=== PATIENT | female | born 2000 | race Caucasian/White ===

== ENCOUNTER 2020-02-19 23:23 | Emergency (ER) | payer BC, SELFPAY ==
--- NOTE | ~2020-02-19 | XR_ITS ---
EXAMINATION: XR knee RT 3V DATE: 02/20/2020 00:04 INDICATION: Right knee pain TECHNIQUE: Three views of the right knee were obtained. COMPARISON: None. FINDINGS: Alignment is normal. No fracture or osteochondral lesion. Joint spaces are normal with no e rosions. No joint effusion/synovitis. Soft tissues are unremarkable. IMPRESSION: 1. No acute osseous abnormality. Reviewed, dictated and finalized at location A. X SYSTEM ADMIN
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
--- NOTE | ~2020-02-19 | XR_ITS ---
EXAMINATION: XR ankle RT min 3V INDICATION: Right ankle swelling TECHNIQUE: Four views of the right ankle are obtained. COMPARISON: None available FINDINGS: There is no fracture, dislocation, or subluxation. The mortise is intact. Soft tissue swell ing is seen in the lateral foot. IMPRESSION: 1. Soft tissue swelling without acute osseous abnormality of the ankle. Reviewed, dictated and finalized at location A. R MACHINE OPERATOR HELPER
[2020-02-19 23:37] VITALS: BP 130/82; PULSE 75; RESP 18; TEMP 37.1; O2SAT 100
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
[2020-02-20] MEDS: IBUPROFEN 400 MG TABLET 800 MG PO (00:07)
[2020-02-20 01:04] VITALS: BP 126/74; PULSE 85; RESP 18; O2SAT 100
== END 2020-02-20 01:32 | disposition home or self-care (01) ==
PROVIDERS: Emergency Provider Emergency Medicine; PCP Pediatrics
DX: S93.401A Sprain of unspecified ligament of right ankle, initial encounter (principal); S96.911A Strain of unspecified muscle and tendon at ankle and foot level, right foot, initial encounter; X50.9XXA Other and unspecified overexertion or strenuous movements or postures, initial encounter; F17.290 Nicotine dependence, other tobacco product, uncomplicated; Y93.75 Activity, martial arts
CPT/HCPCS: 73562; 73610; 73630; 99284; A9270

== ENCOUNTER 2023-12-08 17:57 | Emergency (ER) | payer OTHER, BC, SELFPAY ==
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
[2023-12-08 18:07] VITALS: BP 109/68; PULSE 96; RESP 18; TEMP 35.9; O2SAT 100
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
[2023-12-08] MEDS: LORazepam (*CRX) 0.5 MG TABLET PO (20:46)
[2023-12-08] MEDS: ONDANSETRON INJ 4 MG/2 ML VIAL IV PUSH (20:47)
[2023-12-08 21:15] VITALS: BP 120/84; PULSE 88; RESP 16; TEMP 36.9; O2SAT 100
== END 2023-12-08 21:19 | disposition home or self-care (01) ==
PROVIDERS: Emergency Provider Emergency Medicine
DX: S09.90XA Unspecified injury of head, initial encounter (principal); M54.2 Cervicalgia; V43.52XA Car driver injured in collision with other type car in traffic accident, initial encounter
CPT/HCPCS: 70450; 72125; 96374; 99284; A9270; J2405; L0140

== ENCOUNTER 2024-07-06 09:33 | Emergency (ER) | payer OTHER, SELFPAY ==
[2024-07-06 09:44] VITALS: BP 114/66; PULSE 70; RESP 16; TEMP 37.1; O2SAT 98
--- OUTSIDE RECORDS SUMMARY | 2024-07-06 09:50 | XMS_ITS | Clinical Summary ---
Author Organization [facility] Address [address] 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 This disclosure is being madepursuant to the Care Everywhere program and may not contain all information available regarding this patient. Last updated 17.[facility] [place] Allergies No known active allergies Medications * Be aware that medications may not be up to date on this document. Alwaysverify current medications with the patient. 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 Gender Identity Not on file Sexual Orientation Not on file Plan of Treatment Health Maintenance Due Date Last Done Comments HIV SCREENING 2013 HPV VACCINE (1 - 3-dose series) 2013 HEPATITIS C SCREENING 05/01/2016 DTAP/TDAP/TD VACCINES (1 - Tdap) 2017 HEPATITIS B VACCINE (1 of 3 - 19+ 3-dose series) 2017 COVID-19 VACCINE (1 - 2023-2 5 season) 2023 DEPRESSION SCREENING 03/01/2024 INFLUENZA VACCINE (Season Ended) 2024 03/12/19 16 ZOSTER VACCINE (1 of 2) 2048 HIB VACCINE Aged Out No longer eligi ble based on patient's age to complete this topic MENINGOCOCCAL (Group B) VACC INE SHARED DECISION-MAKING Aged Out No longer eligibl e based on patient's age to complete this topic MENINGOCOCCAL GROUPS A/C/Y/W VACCINE Aged Out No longer eligible b ased on patient's age to complete this topic PNEUMOCOCCAL VACCINE Aged Out No long er eligible based on patient's age to complete this topic Insurance [facility] Address: [facility] [id number] [place] [address] Care Teams Rotary Lithographic Press Operator Relationship Specialty Start Date End Date Martha Car MD [address] [place] [address] PCP - General 07/05/19
--- OUTSIDE RECORDS SUMMARY | 2024-07-06 09:50 | XMS_ITS | Data Portability ---
Author Organization [facility] [place] Address [address] [place] [address] Care Team Providers Care Detailer Furniture Name Role Phone KAREN [facility] Primary Care Provider Assessment Encounter Date Assessment Date Assessment LastModified by Organization Details LastModified Time 12/08/2021 12/08/2021 Annual gynecological exam performed. Patient will come back in a year unless there are new symptoms. [email or web address] Not available 12/08/2021 12:58:58 01/25/2023 01/25/2023 Annual gynecological exam performed. Patient will come back in a year unless there are new symptoms. Not available 01/25/2023 15:12:16 03/13/2024 03/13/2024 Annual gynecological exam performed. Patient will come back in a year unless there are new symptoms. [email or web address] Not available 03/13/2024 16:28:07 Plan of Treatment Reminders Order Date Submit Date Provider Last Modified By Organization Details Last Modified Time Details Appointments None recorded. Lab 17-hydroxyp rogesterone , QN, serum 2021 [facility] (Lab), [address], [place], [address], 15:04:39 dhea-sulfat e, serum 2021 [facility] (Lab), [address], [place], [address], 15:04:33 estradiol, serum 2021 [facility] (Lab), [address], [place], [address], 15:04:34 FSH (follicle-s timulating hormone), serum 2021 [facility] (Lab), [address], [place], [address], 15:04:36 HbA1c (hemoglobin A1c), blood 2021 [facility] (Lab), [address], [place], [address], 2 15:04:38 lh (luteinizin g hormone), serum 2021 [facility] (Lab), [address], [place], [address], 15:04:36 progesteron e, serum 2021 [facility] (Lab), [address], [place], [address], 15:04:35 prolactin, serum 2021 [facility] (Lab), [address] [place], [address], 15:04:35 shbg (sex hormone-bin ding globulin), serum 2021 [facility] (Lab), [address] [place], [address], 2 15:04:37 TSH, serum or plasma 2021 [facility] (Lab), [address] [place], [address], 15:04:37 testosteron e free/testos terone total, ratio, serum 2021 022 [facility] (Lab), [address] [facility], [place], [address], 15:04:39 CBC w/ auto diff 2021 022 [facility] (Lab), [address] [facility], [place], [address], 15:04:33 Referral None recorded. Procedures None recorded. Surgeries None recorded. Imaging None recorded. Medication Orders None recorded. Patient TargetsNo targets recorded. Patient InstructionsNo instructions recorded. Reason for Referral None Reported. Results Created Date Observation Date Name Description Value Unit Range Abnormal Flag Note LastModifiedBy Organization Detail LastModifiedTime 10/07/1910/06/2021 CT/GC AND TRICH OMONA S VAGIN KHUSHBOO (RRNA ), URINE chlamydia trachomatis, PCR Negati ve negati ve Not Available [facility] [address] [place] [address], [address], 10/07/2021 14:49:25 10/07/19 22 10/06/2021 CT/GC AND TRICH OMONA S VAGIN KHUSHBOO (RRNA ), URINE neisseria gonorrhoeae, PCR Negati ve negati ve Not Available [facility] [address] [place] [address], [address], 10/07/2021 14:49:25 10/07/19 22 10/06/2021 CT/GC AND TRICH OMONA S VAGIN KHUSHBOO (RRNA ), URINE trichomonas vaginalis ribosomal RNA (rrna) Negati ve negati ve Not Available [facility] [address] [place] [address], [address], 10/07/2021 14:49:25 10/07/19 22 10/06/2021 CBC W/DIF F WBC 5.7 10'3/ uL 3.6-10 .2 Not Available [facility] Disease [address] [place] [address] [place], [address], 10/13/2021 15:04:33 10/07/19 22 10/06/2021 CBC W/DIF F RBC 4.70 10'6/ uL (based on docume nted legal sex) 4.10-5 .30 Not Available [facility] Infectious Disease [facility] [place], [address], 10/13/2021 15:04:33 10/07/19 22 10/06/2021 CBC W/DIF F HGB 14.2 g/dL (based on docume nted legal sex) 11.9-1 5.8 Not Available [facility] Infectious Disease [facility] [place], [address], 10/13/2021 15:04:33 10/07/19 22 10/06/2021 CBC W/DIF F HCT 43.4 % (based on docume nted legal sex) 37.4-4 8.3 Not Available [facility] Infectious Disease [facility] [place], [address], 10/13/2021 15:04:33 10/07/19 22 10/06/2021 CBC W/DIF F MCV 92.0 fL 82.0-9 9.0 Not Available [facility] [place], [address], 10/13/2021 15:04:33 10/07/19 22 10/06/2021 CBC W/DIF F MCH 30.0 pg 27.0-3 3.0 Not Available [facility] [place], [address], 10/13/2021 15:04:33 10/07/19 22 10/06/2021 CBC W/DIF F MCHC 33.0 g/dL 32.0-3 6.0 Not Available [facility] [place], [address], 10/13/2021 15:04:33 10/07/19 22 10/06/2021 CBC W/DIF F RDW 13.0 % 11.0-1 5.0 Not Available [facility] [place], [address], 10/13/2021 15:04:33 10/07/19 22 10/06/2021 CBC W/DIF F plt 291 10'3/ uL 150-45 0 Not Available [facility] [place], [address], 10/13/2021 15:04:33 10/07/19 22 10/06/2021 CBC W/DIF F MPV 10.5 fL 9.8-12 .7 Not Available [facility] [place], [address], 10/13/2021 15:04:33 10/07/19 22 10/06/2021 CBC W/DIF F NRBC's 0.0 % 0 Not Available [facility] Infectious Disease [facility] [place], [address], 10/13/2021 15:04:33 10/07/19 22 10/06/2021 CBC W/DIF F absolute NRBCs 0.0 10'3/ uL 0 Not Available [facility] [place], [address], 10/13/2021 15:04:33 10/07/19 22 10/06/2021 CBC W/DIF F neutrophils 55.0 % 37.0-7 2.0 Not Available [facility] Infect[facility] [place], [address], 10/13/2021 15:04:33 10/07/19 22 10/06/2021 CBC W/DIF F lymphocytes 32.0 % 16.0-4 8.0 Not Available [facility] [place], [address], 10/13/2021 15:04:33 10/07/19 22 10/06/2021 CBC W/DIF F monocytes 11.0 % 4.0-14 .0 Not Available [facility] Infect[facility] Disease [address] [place], [place] [address], [place], [address], 10/13/2021 15:04:33 10/07/19 22 10/06/2021 CBC W/DIF F eosinophils 1.0 % 0.0-9. 0 Not Available [facility] [address] [place] [address], [address], 10/13/2021 15:04:33 10/07/19 22 10/06/2021 CBC W/DIF F basophils 1.0 % 0.0-2. 0 Not Available [facility] Disease [address] [place], [place] [address], [place], [address], 10/13/2021 15:04:33 10/07/19 22 10/06/2021 CBC W/DIF F immature granulocytes 0.0 % no define d refere nce range Not Available [facility] Disease [address] [place], [place] [address], [place], [address], 10/13/2021 15:04:33 10/07/19 22 10/06/2021 CBC W/DIF F absolute neutrophils 3.2 10'3/ uL 1.1-6. 0 Not Available [facility] Disease [address] [place], [place] [address], [place], [address], 10/13/2021 15:04:33 10/07/19 22 10/06/2021 CBC W/DIF F absolute lymphocytes 1.8 10'3/ uL 0.7-3. 4 Not Available [facility] Disease [address] [place], [place] [address], [place], [address], 10/13/2021 15:04:33 10/07/19 22 10/06/2021 CBC W/DIF F absolute monocytes 0.6 10'3/ uL 0.3-1. 0 Not Available [facility] Disease [address] [place] [address], [address], 10/13/2021 15:04:33 10/07/19 22 10/06/2021 CBC W/DIF F absolute eosinophils 0.1 10'3/ uL 0.0-0. 6 Not Available [facility] [address] [place] [address], [address], 10/13/2021 15:04:33 10/07/19 22 10/06/2021 CBC W/DIF F absolute basophils 0.0 10'3/ uL 0.0-0. 1 Not Available [facility] [address] [place] [address], [address], 10/13/2021 15:04:33 10/07/19 22 10/06/2021 CBC W/DIF F absolute immature granulocytes 0.0 10'3/ uL 0.00-0 .10 022 3:59 AM: P indic ates parti al resul ts on a panel have been relea sed. Addit ional resul ts will follo w. 022 3:59 AM: This resul t has been final verif ied. No addit ional or santoyo ed resul ts are expec tristan. Not Available [facility] Disease [address] [place] [address], [address], 10/13/2021 15:04:33 10/07/19 22 10/06/2021 DHEA SULFA TE DHEA-sulfate 295 ug/dL Femal e Range s Age(y ) Range (ug/d L) 10-15 34-28 0 15-20 65-36 8 20-25 148-4 07 25-35 99-34 0 35-45 61-33 7 45-55 35-25 6 55-65 19-20 5 65-75 9-246 > 75 12-15 4 Not Available [address], [address], 10/13/2021 15:04:33 10/07/19 22 10/06/2021 ESTRA DIOL estradiol 23.1 pg/mL This assay was perfo rmed using [employer] ratio n reage nts and test kits. Value s obtai mary with other assay metho ds or kits canno t be used inter [facility] . Femal e Estra diol Range s: Folli cular phase 12.4- 233 pg/mL Ovula tion phase 41.0- 398 pg/mL Lutea l phase 22.3- 341 pg/mL Postm enopa usal< 5-138 pg/mL Healt hy Pregn ant Women 1st Trime ster1 54-32 43 pg/mL 2nd Trime ster1 561-2 1280 pg/mL 3rd Trime ster8 525-> 01389 pg/mL Not Available [address], [address], 10/13/2021 15:04:34 10/07/19 22 10/06/2021 PROGE STERO NE progesterone 0.32 NG/mL This assay was perfo rmed using [employer] ratio n reage nts and test kits. Value s obtai mary with other assay metho ds or kits canno t be used inter santoyo eably . Femal e Proge stero ne Range s: Folli cular phase 0.06- 0.89 ng/mL Ovula tion phase 0.12- 12.00 ng/mL Lutea l phase 1.83- 23.90 ng/mL Postm enopa usal< 0.05- 0.13 ng/mL Healt hy Pregn ant Women 1st Trime ster1 1.0-4 4.30 2nd Trime ster2 5.40- 83.30 3rd Trime ster5 8.70- 214.0 0 Not Available [facility] Disease [address] [place], [address], 10/13/2021 15:04:35 10/07/19 22 10/06/2021 PROLA CTIN prolactin, total 27.10 NG/mL 4.79-2 3.30 high This assay was perfo rmed using [employer] ratio n reage nts and test kits. Value s obtai mary with other assay metho ds or kits canno t be used inter [facility] . Not Available [facility] Disease [address] [place], [address], 10/13/2021 15:04:35 10/07/19 22 10/06/2021 LH (LUTE NIZIN G HORMO NE) LH 7.3 mIU/m L This assay was perfo rmed using [employer] ratio n reage nts and test kits. Value s obtai mary with other assay metho ds or kits canno t be used inter [facility] . Femal es Mid-F ollic ular: 2.4-1 2.6 mIU/m L Mid-C ycle: 14.0- 95.6 mIU/m L Mid-L uteal : 1.0-1 1.4 mIU/m L Postm enopa use: 7.7-5 8.5 mIU/m L Not Available [facility] Disease [address] [place], [address], 10/13/2021 15:04:36 10/07/19 22 10/06/2021 FSH FSH 6.7 mIU/m L This assay was perfo rmed using [employer] ratio n reage nts and test kits. Value s obtai mary with other assay metho ds or kits canno t be used inter [facility] . Femal es Folli cular : 3.5-1 2.5 mIU/m L Ovula tion: 4.7-2 1.5 mIU/m L Lutea l: 1.7-7 .7 mIU/m L Postm enopa use: 25.8- 134.8 mIU/m L Not Available [facility] Infect[facility] Disease [address] [place], [address], 10/13/2021 15:04:36 10/07/19 22 10/06/2021 TSH, REFLE X FREE T4 TSH 1.72 uIU/m L 0.30-5 .33 Not Available [facility] Disease [address] [place], [address], 10/13/2021 15:04:37 10/07/19 22 10/06/2021 HUMAN SEX HORMO NE CADE NG GLOBU ITZ sex hormone binding globulin 43.6 nmole s/L 18.2-1 35.5 Not Available [facility] Disease [address] [place], [address], 10/13/2021 15:04:37 10/07/19 22 10/06/2021 HEMOG LOBIN A1C hemoglobin A1C 5.0 % 0-5.6 The Ameri can Diabe arabella [employer] iatio n recom mends that a prima ry goal of thera py rakesh d be a HBA1C of < 7% and that physi cians shoul d reeva luate the treat ment regim en in patie nts with HBA1C value s consi stent ly > 8%. <5.7% Ellen l 5.7 - 6.4% Incre ased risk for diabe arabella >=6.5 % Diagn ostic of diabe arabella <7.0% Goal of thera py >8.0% Actio n sugge sted Not Available [facility] Disease [address] [place], [address], 10/13/2021 15:04:38 10/07/19 22 10/06/2021 TESTO STERO NE, FREE( DIALY SIS) AND TOTAL (LC/M S/MS) testosterone , total 41 NG/dL 2-45 For addit ional infor nalinijazmine gustafson e refer to http: //[facility] adrienne cuadraque stdia gnost ics.c om/fa q/Tot Allison Oneal [facility] (This link is being provi ded for infor matio nal/ educa ashanti l purpo ses only. ) This test was devel oped and its sulema tical perfo rmanc e apolonia cteri stics have been deter mined by [employer]. It has not been clear ed or appro oneil by the FDA. This assay has been valid ated pursu ant to the CLIA regul ation s and is used for clini danielle purpo ses. Not Available [facility] Disease [address] [place], [address], 10/13/2021 15:04:39 10/07/19 22 10/06/2021 TESTO STERO NE, FREE( DIALY SIS) AND TOTAL (LC/M S/MS) testosterone , free 4.4 pg/mL 0.1-6. 4 This test was devel oped and its sulema tical perfo rmanc e apolonia cteri stics have been deter mined by [employer]. It has not been clear ed or appro oneil by the FDA. This assay has been valid ated pursu ant to the CLIA regul ation s and is used for clini danielle purpo ses. Perfo rming Organ izati on Lisa galvan n: Site ID: [id number] Name: [employer] o[employer] s-Kyle [facility] Addre ss: [id number] [place] [facility] [place] [address] Direc tor: Mary turner M.D. Not Available [facility] Disease [address] [place], [address], 10/13/2021 15:04:39 10/07/19 22 10/06/2021 17-OH PROGE STERO NE 17-hydroxypr ogesterone, lc/MS/MS 40 NG/dL Adult Femal e Refer ence Range s for 17-Hy droxy proge stero ne: Pre-M enopa usal Mid Folli cular : 23-10 2 ng/dL Pre-M enopa usal Surge : 67-34 9 ng/dL Pre-M enopa usal Mid Lutea l: 139-4 31 ng/dL Postm enopa usal Phase : < or = 45 ng/dL Pregn alessandro: First Trime ster: 78-45 7 ng/dL Secon d Trime ster: 90-35 7 ng/dL Third Trime ster: 144-5 78 ng/dL This test was devel oped and its sulema tical perfo rmanc e apolonia cteri stics have been deter mined by [facility] . It has not been clear ed or appro oneil by FDA. This assay has been valid ated pursu ant to the CLIA regul ation s and is used for clini danielle purpo ses. Perfo rming Organ izati on Infor matio n: Site ID: [id number] Name: [employer] ostsherrie s/K[facility] , Addre ss: [id number] [place] [address] Direc tor: Isis hobbs MD,Ph D,NHUNG Not Available [facility] [address] [place], [address], 10/13/2021 15:04:39 11/06/19 22 11/05/2021 PROLA CTIN prolactin, total 24.90 NG/mL 4.79-2 3.30 high This assay was perfo rmed using [employer] ratio n reage nts and test kits. Value s obtai mary with other assay metho ds or kits canno t be used inter s[facility]ably . Not Available [facility] [address] [place], [address], 11/06/2021 03:48:09 12/09/19 22 12/08/2021 PROLA CTIN prolactin, total 21.10 NG/mL 4.79-2 3.30 This assay was perfo rmed using [employer] ratio n reage nts and test kits. Value s obtai mary with other assay metho ds or kits canno t be used inter santoyo eably . Not Available [facility] [address], [place], [address], 12/09/2021 05:14:17 12/09/19 22 12/08/2021 IMAGE GUIDE D PAP, REFLE X HPV IF ASCUS ONLY image guided Pap, reflex HPV ASCUS only SEE RESULT S BELOW abnormal CASE REPOR T: Cytol ogy Gynec ologi danielle Repor t Case: [id number] Autho sonia hooks Provi jaya: Aide Sands, AIR TUCKER Colle cted: 12/08 1332 Order ing Locat ion: [place] Patho log[facility] Recei oneil: 12/09 0655 First Scree n: Strut z, Willi am, CT Patho logis t: Nav [address], MD Speci men: Scree roddy Pap - Image d, Cervi x STATE MENT OF ADEQU ACY: Satis facto ry for evalu ation Trans forma tion zone compo nent prese nt FINAL DIAGN OSIS: Epith elial Cell Abnor malit y, Squam ous Cell: Atypi daneille Squam ous Cells of Undet ermin ed Signi chema ce (ASC- US). Elect brock gao d by Nav Quigley rd, MD on 12/15 at 10:30 AM ----- ----- ----- ----- ----- ----- ----- ----- ----- ----- ----- ----- ----- ----- ----- ----- ----- ---- HPV RESUL TS: HPV mRNA E6/E7 : Posit ramiro - HPV mRNA Detec tristan HPV GENOT YPE 16 ([facility]) : Not Detec tristan HPV GENOT YPE 18/45 ([facility]) : Not Detec tristan NOTE: This high risk HPV mRNA assay detec ts fourt een high- risk HPV types (16, 18, 31, 33, 35, 39, 45, 51, 52, 56, 58, 59, 66, 68) witho ut diffe renti ation . This assay can diffe renti ate HPV 16 from HPV 18/45 , but does not diffe renti ate betwe en HPV 18 and HPV 45. A negat ramiro HPV 16, 18/45 genot ype assay resul t does not exclu de the possi bilit y of cytol ogic abnor malit ies or of futur e or under lying SARAH 1, SARAH 3 or cance r. COMME NT: Note: This speci men was revie wed by a Cytot echno logis t and/o r Patho logis t (as indic ated in this repor t) after evalu ation using the Thinp rep Imagi ng Syste m. CLINI DANIELLE INFOR MATIO N: Menst rual Statu s: LMP (if appli cable ): Clini danielle Histo ry/Pr eviou s Pap: Type of Neopl rylan (if appli cable ): Signi fican t Clini danielle Findi ngs: Other Histo ry: Hormo olaf (if appli cable ): SUGGE STED FOLLO W-UP: Follo w up as warra nted, based on curre nt guide lines and indiv idual patie nt consi derat ions. Not Available [facility] [address] [place], [address], 12/17/2021 17:03:55 12/09/1912/08/2021 TRICH OMONA S VAGIN KHUSHBOO (RRNA ) trichomonas vaginalis ribosomal RNA (rrna) Negati ve negati ve Not Available [facility] [address], [place], [address], 12/17/2021 17:03:56 12/09/1912/08/2021 CT/GC ([facility]) , THINP REP VIAL chlamydia trachomatis, PCR Negati ve negati ve Not Available [facility] [address] [place], [address], 12/17/2021 17:03:56 12/09/19 22 12/08/2021 CT/GC ([facility]) , THINP REP VIAL neisseria gonorrhoeae, PCR Negati ve negati ve Not Available [facility] [address] [place], [address], 12/17/2021 17:03:56 01/26/20 23 01/25/2023 IMAGE GUIDE D PAP, REFLE X HPV IF ASCUS ONLY image guided Pap, reflex HPV ASCUS only SEE RESULT S BELOW CASE REPOR T: Cytol ogy Gynec ologi danielle Repor t Case: [id number] Autho sonia Provi jaya: Aide Sands, MYRIAM Colle cted: 01/25 1700 Order ing Locat ion: [place] Patho logy Recei oneil: 01/26 0846 First Scree n: Rob Talley, CT Rescr een: Flakita Bullock CT Speci men: Scree roddy Pap - Image d, Cervi x STATE MENT OF ADEQU ACY: Satis facto ry for evalu ation Trans forma tion zone compo nent prese nt FINAL DIAGN OSIS: Negat ramiro for Intra epith elial Carmen n or Jaquelin aguilar (NIL) . Anabel gao d by Flakita Bullock , VICTORIANO on 01/28 at 2:34 PM ----- ----- ----- ----- ----- ----- ----- ----- ----- ----- ----- ----- ----- ----- ----- ----- ----- ---- COMME NT: This speci men was revie wed by a Cytot echno logis t and/o r Patho logis t (as indic ated in this repor t) after evalu ation using the Thinp rep Imagi ng Syste m. CLINI DANIELLE INFOR MATIO N: Menst rual Statu s: LMP (if appli cable ): Clini danielle Histo ry/Pr eviou s Pap: Type of Neopl rylan (if appli cable ): Signi fican t Clini danielle Findi ngs: Other Histo ry: Hormo olaf (if appli cable ): PAP EDUCA ASHANTI L NOTE: The Pap Test is a scree roddy test with an inher ent false negat ramiro rate. Liqui d-bas ed sampl ing may decre ase, but will not elimi liborio, false negat ramiro resul ts. A negat ramiro resul t does not precl ude the prese nce and/o r devel opmen t of disea se, since the prese nce of abnor mal cells in the sampl e depen ds on the locat ion of the lesio n and sampl ing techn ique. Newton nued regul ar scree roddy is the best metho d of cance r preve ntion . If repor tristan cytol ogic findi ng do not corre late with physi danielle and/o r histo rical findi ngs, furth er inves tigat ion is recom nyasia d, as clini nano pacheco nted. Not Available [facility] (Lab) [address], [place], [address], 01/28/2023 15:38:51 03/13/19 25 03/13/2024 IMAGE GUIDE D PAP, REFLE X HPV IF ASCUS ONLY image guided Pap, reflex HPV ASCUS only SEE RESULT S BELOW CASE REPOR T: Cytol ogy Gynec ologi danielle Repor t Case: [id number] Autho sonia g Provi jaya: Aide Sands, MYRIAM Hinson cted: 03/13 1621 Order ing Locat ion: [place] Patho logy Recei oneil: 03/14 1316 First Scree n: Andrew r, Flakita , CT Rescr een: Marisabel Lyons Speci men: Scree roddy Pap - Image d, Cervi x STATE MENT OF ADEQU ACY: Satis facto ry for evalu ation Trans forma tion zone compo nent absen t The absen ce of an endoc ervic al compo nent was confi rmed by an addit ional scree ner. ----- ----- ----- ----- ----- ----- ----- ----- ----- ----- ----- ----- ----- ----- ----- ----- ----- ---- FINAL DIAGN OSIS: Negat ramiro for Intra epith margie walters or Jaquelin aguilar (NIL) . Elect brock ascencio by Marisabel franklin on 2024 at 1944 [employer] ----- ----- ----- ----- ----- ----- ----- ----- ----- ----- ----- ----- ----- ----- ----- ----- ----- ---- COMME NT: This speci men was revie wed by a Cytot echno logis t and/o r Patho logis t (as indic ated in this repor t) after evalu ation using the Thinp rep Imagi ng Syste m. CLINI DANIELLE INFOR MATIO N: Menst rual Statu s: LMP (if appli cable ): Clini danielle Histo ry/Pr eviou s Pap: Type of Neopl rylan (if appli cable ): Signi fican t Clini danielle Findi ngs: Other Histo ry: Hormo olaf (if appli cable ): PAP EDUCA ASHANTI L NOTE: The Pap Test is a scree roddy test with an inher ent false negat ramiro rate. Liqui d-bas ed sampl ing may decre ase, but will not elimi liborio, false negat ramiro resul ts. A negat ramiro resul t does not precl ude the prese nce and/o r devel opmen t of disea se, since the prese nce of abnor mal cells in the sampl e depen ds on the locat ion of the lesio n and sampl ing techn ique. Newton nued regul ar scree roddy is the best metho d of cance r preve ntion . If repor tristan cytol ogic findi ng do not corre late with physi danielle and/o r histo rical findi ngs, furth er inves tigat ion is recom nyasia d, as clini nano warrmarni nted. Not Available [facility] (Lab) [address], [place], [address], 03/20/2024 20:47:41 Result Notes None recorded. Problems Name Problem SNOMED Code Status Onset Date Resolution Date Notes Provider Name and Address Organization Details Recorded Time Mixed anxiety and depressive disorder 460411221 [facility] 15:14:33 History of epilepsy 123030279 Active 2022 [facility] 15:15:07 Problem Notes None recorded. Procedures Surgical History Date Name Laterality Status Provider Name and Address Organization Details Recorded Time 3 Date of Last Mammogram completed [facility] 03/13/2024 16:29:26 0 Date of Last Pap Smear completed [facility] 03/13/2024 16:29:26 Imaging Results None recorded. Procedure Notes None recorded. Medical Equipment None Reported. Allergies Allergen ID Allergen Name Allergen Category Reaction Reaction Severity Criticality Documentation Date Start Date Code Code System Note Provider Name and Address Organization Details Recorded Time 98300 Penicilli n Not available angioedem a Not available Not available 10/06/2021 04158 RxNorm Addie [facility]te [facility] 2 11:43:35 16543 cat dander environme nt Not available Not available Not available 01/25/2023 99853 PAIGE tinoco, [facility] 3 15:13:03 84296 Canis lupus familiari s extract environme nt Not available Not available Not available 01/25/2023 52773 4 [facility]io [facility] 3 15:13:12 15559 walnut allergeni c extract food Not available Not available Not available 01/25/2023 80013 0 RxFlorencio tinoco, [facility] 3 15:13:21 63774 tree and shrub pollen environme nt,medica tion Not available Not available Not available 01/25/2023 47926 [facility] 3 15:13:31 17017 grass pollen environme nt,medica tion Not available Not available Not available 01/25/2023 11423 [facility] 3 15:13:43 11616 weed pollen environme nt,medica tion Not available Not available Not available 01/25/2023 38566 [facility] 3 15:13:52 Medications Name Sig Start Date Stop Date Status Note LastModified by Organization Details LastModified Time cyclobenzap rine 10 mg tablet TAKE 1 TABLET BY MOUTH TWICE DAILY NEEDED FOR MUSCLE SPASM active Not Available Not Available No t Available buspirone 5 mg tablet 01/25 completed Not Available Not Available Not Available ondansetron HCl 4 mg tablet TAKE 1 TABLET BY MOUTH EVERY 8 HOURS NEEDED 01/25 completed Not Available Not Available Not Available sertraline 100 mg tablet TAKE 1 TABLET BY MOUTH DAILY active Not Available Not Available No t Available hydroxyzine HCl 50 mg tablet TAKE 1 TABLET BY MOUTH THREE TIMES DAILY NEEDED active Not Available Not Available No t Available cephalexin 500 mg capsule 03/13 completed Not Available Not Available Not Available Prozac 20 mg capsule Take 1 capsule every day by oral route. 01/25 completed Not Available Not Available Not Available sertraline 25 mg tablet TAKE 1 TABLET BY MOUTH EVERY MORNING 03/13 completed Not Available Not Available Not Available hydroxyzine HCl 25 mg tablet TAKE 1 TABLET BY MOUTH THREE TIMES DAILY NEEDED 03/13 completed Not Available Not Available Not Available Prozac 10 mg capsule 01/25 completed Not Available Not Available Not Available ondansetron 4 mg disintegrat ing tablet DISSOLVE 1 TABLET ON THE TONGUE EVERY 8 HOURS NEEDED FOR NAUSEA OR VOMITING 03/13 completed Not Available Not Available Not Available fluticasone propionate 50 mcg/actuati on nasal spray,suspe nsion 01/25 completed Not Available Not Available Not Available sertraline 50 mg tablet TAKE 1 TABLET BY MOUTH DAILY 03/13 completed Not Available Not Available Not Available doxycycline hyclate 100 mg tablet TAKE ONE TABLET BY MOUTH TWICE DAILY FOR 10 DAYS 03/13 completed Not Available Not Available Not Available atomoxetine 25 mg capsule TAKE 1 CAPSULE BY MOUTH DAILY active Not Available Not Available No t Available lamotrigine ER 50 mg tablet,exte nded release 24 hr active Not Available Not Available Not Available Vitals Date Recorded Body height Body mass index (BMI) Body weight Systolic blood pressure Diastolic blood pressure Provider Name and Address Organization Details Last Updated DateTime 10/06/2021 170.18 cm 25.3 kg/m2 22672.53 g 120 mm[Hg] 77 mm[Hg] [facility] 2 11:43:30 Date Recorded Body height Body mass index (BMI) Body weight Systolic blood pressure Diastolic blood pressure Provider Name and Address Organization Details Last Updated DateTime 12/08/2021 170.18 cm 25.3 kg/m2 24160.25 g 117 mm[Hg] 76 mm[Hg] [facility] 2 12:59:22 Date Recorded Body height Body mass index (BMI) Body weight Systolic blood pressure Diastolic blood pressure Provider Name and Address Organization Details Last Updated DateTime 01/25/2023 170.18 cm 24.3 kg/m2 26825.82 g 124 mm[Hg] 80 mm[Hg] Hetal Alicea [facility] 3 15:12:44 Date Recorded Body height Body mass index (BMI) Body weight Systolic blood pressure Diastolic blood pressure Provider Name and Address Organization Details Last Updated DateTime 03/13/2024 170.18 cm 24 kg/m2 94787.63 g 121 mm[Hg] 77 mm[Hg] DUONG Marie [facility] 5 16:28:57 Social History Question Answer Notes LastModified by Organizat ion Details LastModified Time Tobacco Smoking Status Current Every Day Smoker Hetal Alicea [facility] 01/25/2023 15:15:50 Do You Have An Advance Directive? No Information not available 10/06/2021 What Is Your Level Of Alcohol Consumption? Occasional Information not available 10/06/2021 How Many Years Have You Consumed Alcohol? 5 [email or web address] Information not available 03/13/2024 Are You Blind Or Do You Have Difficulty Seeing? No Information not available 10/06/2021 What Is Your Level Of Caffeine Consumption? Occasional Information not available 10/06/2021 How Much Tobacco Do You Chew? None Information not available 10/06/2021 In The 14 Days Before Symptom Onset, Have You Had Close Contact With A Laboratory-confir med COVID-19 While That Case Was Ill? No Information not available 10/06/2021 In The 14 Days Before Symptom Onset, Have You Had Close Contact With A Person Who Is Under Investigation For COVID-19 While That Person Was Ill? No Information not available 10/06/2021 Have You Been To An Area Known To Be High Risk For COVID-19? No Information not available 10/06/2021 Are You Deaf Or Do You Have Serious Difficulty Hearing? No Information not available 10/06/2021 What Type Of Diet Are You Following? REGULAR Information not available 10/06/2021 What Is The Highest Grade Or Level Of School You Have Completed Or The Highest Degree You Have Received? 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 Yes Information not available 10/06/2021 Do You Use Your Seat Belt Or Car Seat Routinely? Yes Information not available 10/06/2021 Do You Have Smoke And Carbon Monoxide Detectors In Your Home? Yes Information not available 10/06/2021 At What Age Did You Start Smoking Tobacco? 16 Information not available 10/06/2021 How Much Tobacco Do You Smoke? 2 PPW [email or web address] Information not available 03/13/2024 Do You Feel Stressed (tense, Restless, Nervous, Or Anxious, Or Unable To Sleep At Night)? [id number] [email or web address] Information not available 03/13/2024 Do You Use Any Illicit Or Recreational Drugs? Yes Information not available 10/06/2021 Do You Use Sunscreen Routinely? Yes Information not available 10/06/2021 How Many Years Have You Smoked Tobacco? 3 [email or web address] Information not available 03/13/2024 Have You Used IV Drugs? No Information not available 10/06/2021 Sex: Unknown Functional Status Question Answer Note LastModified by Organizat ion Details LastModified Time Do you have difficulty walking or climbing stairs? No [email or web address] Information not available 12/08/2021 Are you able to walk? [email or web address] Information not available 10/06/2021 Are you able to care for yourself? Yes [email or web address] Information not available 12/08/2021 Do you have difficulty dressing or bathing? No [email or web address] Information not available 12/08/2021 What is your exercise level? Occasional Information not available 10/06/2021 Mental Status None recorded. Family History Relationship Description Onset Age of this Age Resolved Age Notes LastModified by Organization Details LastModified Time Unspecified Relation Family history unknown [email or web address] Not available 09/2021 11:43:38 Medical History Condition Response Allergies (Food, seasonal, environmental ) Y Other Y Drug/Latex Allergies/Reactions Y Blood Transfusion N Breast Cancer N Dermatologic Disorders N Lung Disease N Defects or Inherited Disease N Breast Problem N Gestational Diabetes N Hematologic disorders N Anesthesia Complications N History of STI Y Deep Vein Thrombosis N Polycystic ovary syndrome N Anxiety Disorder Y Autoimmune disease N Arthritis N Polyps N Infertility N Acid Reflux (GERD) N History of abnormal pap Y Cancer N Varicosities N Stroke N Neurologic/Epilepsy Y Endometriosis N High Cholesterol N Fibromyalgia N Headaches N Kidney Disease N Heart Problems N Thyroid Problems N Kidney or Bladder Problems N GI Problems N Eating Disorder N Anemia N Art (IVF or FET) N Psychiatric Illness N Ovarian Cancer N Diabetes N Pulmonary (TB, Asthma) N Hepatitis/Liver Disease N No Past Medical History N Eczema N Urinary Tract Infection N Abuse/Domestic Violence N Asthma N Trauma/Violence N Depression/ depression Y Heart Disease N Pre-Eclampsia N Hypertension N Osteoporosis N Thrombophilias N Gynecological History Statement/Question Response Abnormal Pap Y Flow Moderate Date of Last Mammogram 12/24/2022 Date of LMP 03/02/2024 N Was last menstrual period normal Y STIs/STDs N HPV Vaccine Y Duration of Flow (days) 7 Current Control Method None Are cycles usually normal Y Frequency of Cycle (Q days) 28 Sexually Active? N Menses Monthly N Age of first menstrual cycle 11 Date of Last Pap Smear 03/01/2019 Sexual Problems? N LMP Approximate N Obstetrics History GPAL:G 0 P 0 0 0 0 Type Value Living 0 Total 0 Past Encounters Encounter ID Performer Location Encounter Start Date Encounter Closed Date Diagnosis/Indication Diagnosis SNOMED-CT Code Diagnosis ICD10 Code Diagnosis Note [id number] MARCELINO [facility]ia [place] [address] [address] 10/06/2021 11:28:18 10/06/2021 12:06:22 Irregular periods 97318488 N92.6 We discussed since she only skipped one month and recently had a normal menses, she should continue to track periods. To call the office if she is frequently skipping months. We discussed need to have a period every 2-3 months for endometria l protection .She would like lab work done, labs orderedUri ne STI testing sentLast WWE around 2019 per patient, encouraged her to schedule a WWENo hx of abnormal paps per patientTo keep a strict menstrual diaryNot interested in BC at the moment - prefers female partners Time spent in visit is a total of 30 mins with at least 50% of visit consisting of counseling and review of plan of care. [id number] MARCELINO Alicia [place] [address] [address] 12/08/2021 12:35:45 12/08/2021 14:08:43 Gynecologic examination [id number] Z01.419 Z11.3 Z11.8 Take Calcium with Vitamin D 1200mg daily if not receiving in daily diet. It is strongly advised to have an annual flu shot and up can obtain at most pharmacies . If you have not had a TDap shot in the last 10 years you should obtain one as well. Discussed with patient & provided with informatio n regarding Gardisil vaccine to prevent the 4 strains for HPV that cause cervical cancer if under age 26. Encourage safe sexual practices, to use condoms and limit partners if not already in a monogamous relationsh ip. Do monthly self breast exams. Have mammogram yearly or every other year depending on family history. BRCA testing is now available for patients with strong genetic history of female cancer. If interested contact the office. Engage in daily exercise of low impact aerobic exercise 45-60 minutes 4-5 times weekly. Avoid tobacco and illicit drugs as well as using moderation with alcohol intake less than 1-2 8 oz beverages daily. This lifestyle behavior pattern will lead to less health conditions and longer life span. If BMI greater than 25 weight watchers or dietary consult advised. Patient received above instructio ns, and questions have been answered. If you have any questions please call or respond to this email. Patient was made aware of the patient portal and may obtain a paper copy of today's plan if desired. WWEBC - prefers female partnersNo rmal pap hxPap done todaySTI testing declined (recently had negative testing)Me nses have been monthly, normalSlig htly elevated prolactin at [facility], having repeat fasting level done todayUTD with PCPNo family hx of breast or ovarian cancerRTC in 1 year or sooner if needed [id number] MARCELINO Alicia [place] [address] [address] 01/25/2023 15:01:05 01/25/2023 15:30:12 Gynecologic examination [id number] Z01.419 Z11.3 Z11.8 WWEBC - prefers female partnerspa p updated STI testing declinedST I testingenc ouraged annual exam with PCPsmoking cessation encouraged , resources discussedR TC in 1 yr or sooner if needed Take Calcium with Vitamin D daily if not receiving in daily diet.It is strongly advised to have an annual flu shot and up can obtain at most pharmacies . If you have not had a TDap shot in the last 10 years you should obtain one as well. Discussed with patient & provided with informatio n regarding Gardisil vaccine to prevent the 4 strains for HPV that cause cervical cancer if under age 26.Encoura ge safe sexual practices, to use condoms and limit partners if not already in a monogamous relationsh ip.Do monthly self breast exams. Engage in daily exercise of low impact aerobic exercise 45-60 minutes 4-5 times weekly. Avoid tobacco and illicit drugs. This lifestyle behavior pattern will lead to less health conditions and longer life span. If BMI greater than dietary consult advised. Patient received above instructio ns, and questions have been answered. If you have any questions please call or respond to this email. Patient was made aware of the patient portal and may obtain a paper copy of today's plan if desired. [id number] MARCELINO Alicia [place] [address],[facility] [place] [address] 03/13/2024 15:59:44 03/13/2024 16:51:39 Gynecologic examination [id number] Z01.419 Z11.3 Z11.8 [facility] - declinedPa p - done todaySTI screen - declinedRo utine labs - UTD/PCPRTC in 1 yr or sooner if needed It is strongly advised to have an annual flu shot and up can obtain at most pharmacies . If you have not had a TDap shot in the last 10 years you should obtain one as well. Discussed with patient & provided with informatio n regarding the HPV vaccine if applicable . Encourage safe sexual practices, to use condoms and limit partners if not already in a monogamous relationsh ip. Do monthly self breast exams. BRCA testing is now available for patients with strong genetic history of female cancer. If interested contact the office. Engage in regular exercise. Avoid tobacco and illicit drugs. This lifestyle behavior pattern will lead to less health conditions and longer life span. If BMI greater than 25 dietary consult advised. Questions answered. Health Concerns Section Related Observation LastModified by Organization Detai ls LastModified Time None Recorded Concern Status LastModified by Organization Details LastModified Time None Recorded Advance Directives Directive N: Payers Encounter Date Sequence Insurance Name Policy Number Policy Mccann Covered Member ID Mccann Member ID Guarantor Name 10/06/2021 1 [place] [id number] Adama Alepra [id number] Tasha Alepra 12/08/2021 1 [place] [id number] Aadma Alepra [id number] Tasha Alepra 01/25/2023 1 [place] [id number] Adama Alepra [id number] Tasha Alepra 03/13/2024 1 [place] [id number] Adama Alepra [id number] Tasha Alepra Notes Date Note Type Note Provider Name and Address Organization Details Recorded Time 10/06/2021 text/html 21yo E1Uzfordwj for evaluation of irregular periodsNo period in August, normal period in SeptemberThis is the first time this has happened, does not normally skip monthsNot currently SA, last SA 1 year ago, prefers female partnersMedical hx : Epilepsy - last seizure around age 15, not on any medications MARCELINO Alicia [address], [place], [address], [facility] 10/06/2021 12:05:17 12/08/2021 text/html Annual GYNReport ed bypatient.Menstrua l cycle:Normal menses Urinary symptoms:No hematuria; No incontinence Vulva:No genital lesion Vagina:Normal vaginal discharge Breast:No breast pain; No breast lump; No nipple discharge Current Contraception:Fema le partners Sexual complaints:No sexual complaints; No pain during intercourse; Normal libido Menopausal Symptoms:No menopausal symptoms; Normal vaginal lubrication Psychological symptoms:No depression; No anxiety; No PMDD Preventive measures:Encourage self breast examination; Encourage regular exercise; Encourage no tobacco use; Encourage regular mammograms starting age [address] [place], [address], [facility] 12/08/2021 14:06:15 01/25/2023 text/html Annual GYNReport ed bypatient.Menstrua l cycle:Normal menses Urinary symptoms:No hematuria; No incontinence Vulva:No genital lesion Vagina:Normal vaginal discharge Breast:No breast pain; No breast lump; No nipple discharge Current Contraception:fema le partners Sexual complaints:No sexual complaints; No pain during intercourse; Normal libido Menopausal Symptoms:No menopausal symptoms; Normal vaginal lubrication Psychological symptoms:No depression; No anxiety; No PMDD Preventive measures:Encourage self breast examination; Encourage regular exercise; Encourage no tobacco use; Encourage regular mammograms starting age 40Notes:last pap 11/2021 - ascus HPV (+) MARCELINO Alicia [address], [place], [address], [facility] 01/25/2023 15:29:47 03/13/2024 text/html Annual GYNReport ed bypatient.Menstrua l cycle:Normal menses Urinary symptoms:No hematuria; No incontinence Vulva:No genital lesion Vagina:Normal vaginal discharge Breast:No breast pain; No breast lump; No nipple discharge Current Contraception:pt prefers female partners Sexual complaints:No sexual complaints; No pain during intercourse; Normal libido Menopausal Symptoms:No menopausal symptoms; Normal vaginal lubrication Psychological symptoms:No depression; No anxiety; No PMDD Preventive measures:Encourage self breast examination; Encourage regular exercise; Encourage no tobacco use; Encourage regular mammograms starting age 40Notes:23yo wwelast pap 12/2022 : nilmpap done 11/2021 : ascus, HPV (+) MARCELINO Alicia [address], [place], [address], [facility] 03/13/2024 16:51:26 OBGyn Episode No OBEpisode recorded.
--- OUTSIDE RECORDS SUMMARY | 2024-07-06 09:50 | XMS_ITS | Clinical Summary ---
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 Name Role Phone Shan Bangura MD Primary Care Provider [phone] Allergies Active Allergy Reactions Criticality Noted Date Comments Penicillins Hives 02/26/2020 Medications No known medications Active Problems Problem Noted Date Diagnosed Date Sprain of right ankle, unspe cified ligament, subsequent encounter 02/26/2020 Family History Medical History Relation Comments No Known Problems Father No Known Problems Mother Relation Status Comments Father Alive Mother Alive Social History Tobacco Use Types Packs/Day Years Used Date Smoking Tobacco: Never Smokeless Tobacco: Never Alcohol Use Standard Drinks/Week Comments Yes 0 (1 standard drink = 0.6 oz pur e alcohol) socially Comments Unknown Sex and Gender Information Value Date Recorded Sex Assigned at Not on file Legal Sex 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 Gender Identity Not on file Sexual Orientation Not on file Last Filed Vital Signs Vital Sign Reading Time Taken Comments Blood Pressure - - Pulse - - Temperature - - Respiratory Rate - - Oxygen Saturation - - Inhaled Oxygen Concentration - - Weight 61.2 kg (135 lb) 05/01/2020 1:45 PM CHIEF TALENT OFFICER Height 170.2 cm (5' 7 ) 05/01/2020 1:45 PM CHIEF TALENT OFFICER Body Mass Index 21.14 05/01/2020 1:45 PM CHIEF 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 OFFICER Plan of Treatment Health Maintenance Due Date Last Done Comments Annual Physical 2001 HPV Vaccines (1 - 3-dose series) 2013 Hepatitis C 2016 DTaP, Tdap and Td Vaccines (1 - Tdap) 2017 Hepatitis B Vaccines (1 of 3 - 19+ 3-dose series) 2017 COVID-19 Vaccine (2023- season) 2023 Cervical Cancer Screening Pap Smear (Age 21 to 29) Every 3 Years 12/08/2024 12/08/2021, 12/08/2021, 12/08/2021, Additional history exists Cervical Cancer Screening 12/08/2024 Meningococcal B Vaccine Aged Out No l onger eligible based on patient's age to complete this topic Meningococcal Vaccine Aged Out No man dian eligible based on patient's age to complete this topic Pneumococcal Vaccine: Pediatrics (0 to 5 Years) and At-Risk Patients (6 to 49 Years) Aged Out No longer eligible based on patient's age to complete this topic RSV Immunizations Under 20 Months Aged Out No longer eligible based on patient's age to complete this topic Insurance [facility] Care Teams Vacuum Closing Machine Operator Relationship Specialty Start Date End Date Shan Bangura MD [address] [place] [address] PCP - General FAMILY PRACTICE 02/26/20
--- OUTSIDE RECORDS SUMMARY | 2024-07-06 09:50 | XMS_ITS | Patient Health Record ---
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 elevated due to high albumin; corrected calcium should be calculated: Corrected Calcium = Measured Ca + 0.8 x (4 - Albumin) = 10.4 + 0.8 x (4 - 5.4) = 9.28 mg/dL (normal after correction) Plan Of Treatment Pending Test Test Name Order Date LIPID PANEL, STANDARD (7600) 05/31/2024 THYROID PANEL WITH TSH (7444) 05/31/2024 TSH+FREE T4 (24139) 11/03/2023 COMPREHENSIVE METABOLIC PANEL (70578) COMPREHENSIVE METABOLIC PANEL (06900) CBC (H/H, RBC, INDICES, WBC, PLT) (1759) 11/03/2023 CBC (INCLUDES DIFF/PLT) (6399) 5 HEMOGLOBIN A1c (496) 05/31/2024 VITAMIN B12/FOLATE, SERUM PANEL (7065) 0 05/31/2024 VITAMIN B12 (927) 11/03/2023 VITAMIN D,25-OH,TOTAL,IA (04103) 024 VITAMIN D,25-OH,TOTAL,IA (39756) 025 UDT 11/03/2023 ADHD Testing 11/03/2023 Future Test Test Name Order Date Phosphorus, Serum 06/28/2024 Bilirubin, Total 06/28/2024 Bilirubin, Direct 06/28/2024 Magnesium, Serum 06/28/2024 PTH, INTACT AND CALCIUM (8837) 5 VITAMIN D,25-OH,TOTAL,IA (85261) 025 Next Appt Details Provider Name:Matteo Keen , 07/26/2024 04:45:00 PM, [address], [facility] [address], [place], [address], Insurance Providers Payer Name Payer Address Payer Phone Subscriber Number Group Number Insured Name Patient Relationship to Insured Coverage Start Date Coverage End Date [place] [address] [place] [address] [id number] Tasha Wyatt Self - patient is the insured 5 [employer] [address] [place] [address] [phone] [id number] Tasha Wyatt Self - patient is the insured 5 Medical (General) History Medical History History ICD Code Past Psychiatric History: Anxiety Disord er abdominal aortic aneurysm: No atrial fibrillation: No chronic fatigue syndrome: No essential tremor: No hyperlipidemia: No hypertension: No Parkinson's disease: No restless leg syndrome: No stroke: No subdural hematoma: No type 1 diabetes mellitus: Yes type 2 diabetes mellitus: No vitamin B12 deficiency: No vitamin D deficiency: No type 1 diabetes mellitus: No undefined chronic back pain epilepsy Past Psychiatric History: Anxiety Disord er,Major Depressive Episode undefined
--- OUTSIDE RECORDS SUMMARY | 2024-07-06 09:50 | XMS_ITS | Clinical Summary ---
Author Organization [facility] Address [address] [place] [address] Phone Care Team Providers Care Gaming Associate Name Role Phone Dat Tavarez APRN, YOVANY Primary Care Provid er Medications No known medications Active Problems Problem Noted Date Diagnosed Date MDD (major depressive disord er), recurrent episode, moderate 06/02/2024 Generalized anxiety disorder 06/02/2024 ADHD 06/02/2024 Encounters Date Type Department Care Team Description 07/03/2024 4:00 PM CDT Outpatient Clinic Visit [facility] [address] [place] [phone] Denisse Pretty LCSW Generalized anxiety disorder (Primary Dx); MDD (major depressive disorder), recurrent episode, moderate (HCC); ADHD Discharge Disposition: Discharged to home or Selfcare 07/03/2024 Travel 06/20/2024 4:00 PM CDT Outpatient Clinic Visit [facility] [address] [place] [phone] Denisse Pretty LCSW Generalized anxiety disorder (Primary Dx); MDD (major depressive disorder), recurrent episode, moderate (HCC); ADHD Discharge Disposition: Discharged to home or Selfcare 06/20/2024 Travel 06/02/2024 2:30 PM CDT Outpatient Clinic Visit [facility] [address] [place] [phone] Denisse Pretty LCSW Generalized anxiety disorder (Primary Dx); MDD (major depressive disorder), recurrent episode, moderate (HCC); ADHD Discharge Disposition: Discharged to home or Selfcare 06/02/2024 Travel from Last 3 Months Family History Medical History Relation Name Comments Anxiety disorder Sister Laly Relation Name Status Comments Sister Laly Social History Tobacco Use Types Packs/Day Years Used Date Smoking Tobacco: Some Days Cigarettes Smokeless Tobacco: Never Tobacco Cessation:Ready to Q uit: No; Counseling Given: No Alcohol Use Standard Drinks/Week Comments Not Currently 0 (1 standard drink = 0.6 oz pur e alcohol) Sexually Active Control Partners Comments Not Currently Comments Unknown Sex and Gender Information Value Date Recorded Sex Assigned at Not on file Legal Sex Female 5:24 PM CDT Gender Identity Not on file Sexual Orientation Not on file Plan of Treatment Upcoming Encounters Date Type Department Care Team (Latest Contact Info) Description 07/18/2024 5:00 PM CDT Outpatient Clinic Visit [facility] [address] [place] [address] Denisse Pretty, FURNACE WORKER [address] [place] [address] Discharge Disposition: Discharged to home or Selfcare 08/01/2024 4:30 PM CDT Outpatient [facility] [address] [place] [address] Denisse Pretty, F[employer]NA[employer] WORKER [address] [place] [address] Discharge Disposition: Discharged to home or Selfcare Health Maintenance Due Date Last Done Comments Hepatitis C Virus (HCV) Screening 1998 TdaP Immunization 1998 Human Papillomavirus (HPV) Immunization (1 - 3-dose series) 2013 Hepatitis B Immunization (1 of 3 - 19+ 3-dose series) 2017 Pneumococcal Immunization Combined (1 of 2 - PCV) 2017 Pap Smear 05/07/2019 SARS-COV-2 Immunization ( season) 2023 07/02/2020, 06/11/2020 Influenza Immunization (Seas on Ended) 2024 11/26/2021, 03/12/2015, 01/01/2006 Respiratory Syncytial Virus (RSV) Immunization (Adult) (1 - 1-dose 75+ series) 2073 Meningococcal Immunization (ACWY) Aged Out No longer eligible b ased on patient's age to complete this topic Rotavirus Immunization Aged Out No lo nger eligible based on patient's age to complete this topic Goals Goal Patient Goal Type Associated Problems Recent Progress Patient-Stated? Author ANXIETY Anxiety On track(2024 4:58 PM CDT) Yes Denisse Pretty LCSW Note: I want to feel more confident, not be depressed, and understand how ADHD effects anxiety and depression Goal/Objective: Increase Coping skills, stress management tools and focus on self care toward overall emotional and mental well being. Anticipated Time Frame for Goal Completion: 6 months Goal Reviewed with: patient Readiness to change: Ready to change Department associated with goal: [facility] Steps to achieve goal: will attend counseling/psychotherapy sessions at least once monthly, at least 6 sessions, utilizing individual and/or group sessions to express thoughts and feelings. to identify, verbalize and process at least three contributing factors/triggers to anxiety and depression. to identify and verbalize at least three actions/skills to prevent and/or cope with anxiety and depression. to put into action, at least one time weekly, for one month, an action/skill to prevent and or cope with anxiety and depression. Behavioral Health Behavioral Health On track(2024 4:58 PM CDT) No Denisse Pretty LCSW Note: Goal/Objective: Increase tools and strategies re relationship with procrastination and burnout. Anticipated Time Frame for Goal Completion: 6 months Goal Reviewed with: patient Readiness to change: Ready to change Department associated with goal: [facility] Steps to achieve goal: will identify at least two personal goals. will identify at least two skills/activities/habits that may improve mood and motivation. will identify and begin implementing at least two action steps to work toward one personal goal. will identify and begin implementing at least one skill/activity/habit to improve mood and motivation Insurance [employer] on file [employer] Care Teams Gaming Associate Relationship Specialty Start Date End Date Dat Tavarez, JOYCE, ORDER PROCESSOR [address] [place] [id number] PCP - General Advanced Practice Nurse 06/02/24
--- NOTE | 2024-07-06 10:05 | ED.URI ---
HPI - URI/Sore Throat General Chief Complaint: Upper Respiratory Infection Stated Complaint: Cough/Sore Throat/Chest Congestion/Ear Pain Time Seen by Provider: 07/06/24 10:05 Source: patient, RN notes reviewed and old records reviewed Mode of arrival: ambulatory Limitations: no limitations History of Present Illness HPI Narrative: 24 year old female who presents to [facility] care with complaints of cough, congestion, sore throat some shortness of breath and fatigue that started 2 days ago. Patient reports that she does have alot of environmental allergies and she is allergic to Walnuts.Patient reports no known fevers or chills or body aches. Patient has not taken any OTC medications for her symptoms. MD elicited complaint: cough, sore throat, rhinorrhea, nasal congestion and other (SOB and fatigue) Onset (ago): day(s) (2 days) Pain scale (0-10): 4 Able to tolerate fluids by mouth: Yes Related Data Home Medications ?Medication ?Instructions ?Recorded ?Confirmed ?Last Taken ?Type bupropion HCl 150 mg 24 hr tablet, mg PO 07/06/24 Unknown History extended release ergocalciferol (vitamin D2) 1,250 07/06/24 Unknown History mcg (50,000 unit) capsule hydroxyzine HCl 50 mg tablet mg 07/06/24 Unknown History sertraline 100 mg tablet mg 07/06/24 Unknown History Allergies Allergy/AdvReac Type Severity Reaction Status Date / Time Penicillins Allergy Hives Verified 07/06/24 09:58 Review of Systems Review of Systems: CONSTITUTIONAL: Denies malaise, chills, sweats, or fever. reports fatigue EYES: Denies visual changes, redness, or discharge. ENT: Reports rhinorrhea, congestion, sinus pain, no otalgia and positive for sore throat. CARDIOVASCULAR: Denies chest pain, palpitations, or edema. RESPIRATORY: Reports cough.? Reports dyspnea at times with activity. GASTROINTESTINAL: Denies abdominal pain, nausea, vomiting, diarrhea SKIN: Denies rash or itching. MUSCULOSKELETAL: Denies myalgia. NEUROLOGIC: Denies headache. All systems reviewed & are unremarkable except as noted in HPI and below PMFSH Past Medical History Medical History [place] allergy Environmental allergies Anxiety Epilepsy Social History Social History Smoking packs per day: 0.25 Smoking cigarettes per day: 5.0 Smoking status: Current every day smoker Tobacco type: cigarettes Alcohol intake: current Alcohol use details: social Substance use type: does not use Gender identity (if verbalized by the patient): Female Comments At time of signature, agree with nursing past medical, surgical, social and family history. There is no relevant family history pertinent to the presenting complaint Exam Narrative: GENERAL: Well-appearing, well-nourished, and in no acute distress. HEAD: Normocephalic EYES: PERRLA, conjunctivae clear ENT: Nares clear, turbinates edematous and erythematous, clear discharge. Mucous membranes moist. TM pearly mcclellan with dull light reflex bilaterally; no tragal tenderness. Oropharynx erythematous without lesions. Tonsils red mildly enlarged and without exudate, no drooling, no hoarseness, no trismus, uvula midline. post nasal drainage NECK: Supple. No lymphadenopathy CHEST: Clear to auscultation, breath sounds equal. No wheezing, rhonchi, rales, or stridor. No respiratory distress, speaks in full sentences.cough at times productive, SAO2 98% on room air, no tachypnea HEART: Regular rate and rhythm. No murmur heard. SKIN: Warm, dry, no rash. NEURO: Alert and oriented x3. PSYCH: Normal mood and affect Course Course Emergency Course: Patient is aware of diagnosis, understands and agrees to treatment plan.? Anticipatory guidance given.? Patient agrees to follow-up as directed and is aware of reasons to seek care at the emergency department. Portions of this record may have been created with voice recognition software Level of Care: Express Care Visit Vital Signs Vital signs: Vital Signs Temperature 37.1 C 07/06/24 09:44 Pulse Rate 70 07/06/24 09:44 Respiratory Rate 16 07/06/24 09:44 Blood Pressure 114/66 07/06/24 09:44 Pulse Oximetry 98 07/06/24 09:44 Oxygen Delivery Room Air 07/06/24 09:44 Temperature 37.1 C 07/06/24 09:44 Pulse Rate 70 07/06/24 09:44 Respiratory Rate 16 07/06/24 09:44 Blood Pressure 114/66 07/06/24 09:44 Pulse Oximetry 98 07/06/24 09:44 Oxygen Delivery Room Air 07/06/24 09:44 Reviewed MDM - URI/Sore Throat MDM Narrative Medical decision making narrative: Differential diagnosis considered: Lewis virus, strep pharyngitis, allergic rhinitis, upper respiratory tract infection, sinusitis, rhinosinusitis, nasopharyngitis. viral pharyngitis, otitis media, otitis externa, pneumonia, bronchitis, viral cough syndrome, viral syndrome, and influenza.? Exam findings show no acute concerns or changes; patient is non-toxic appearing and is in no distress.? Patient is appropriate for outpatient treatment and follow-up. Differential Diagnosis Differential diagnosis: Likely upper respiratory infection, viral infection, pharyngitis and other (cough) Medical Records Attestation: I reviewed the patient's medical records. Lab Data Attestation: I reviewed the patient's lab results. Lab results narrative: strep screen negative, culture sent Labs: Lab Results 07/06/24 Range/Units 09:55 POC Grp A Strep Screen Negative (Negative) reviewed Critical Care Time Critical Care Time Critical Care Time: No Discharge Plan Discharge Clinical Impression: Acute pharyngitis Qualifiers: Pharyngitis/tonsillitis etiology: unspecified etiology Qualified Code(s): J02.9 - Acute pharyngitis, unspecified Cough Qualifiers: Cough type: acute Qualified Code(s): R05.1 - Acute cough Patient Disposition: Home Condition: Stable Instructions: Antibiotic Form, Pharyngitis (ED), Acute Cough (ED) Additional Instructions: Increase fluids especially juices and water [id number] cough and cold medicine of your choice for your symptoms Zyrtec,Claritin, or Monserrat daily Steroids as directed--take with food heat to the face 20-30 minutes 4-6 times a day for pain Salt water gargles, throat lozenges or throat sprays as desired Antibiotic as directed--finished the medication Your strep test today was negative. A throat culture will be sent to the laboratory for further testing. If your symptoms persist, change or worsen significantly before you can contact your personal physician then please, without delay, go to the emergency department for further evaluation. Follow-up with PCP in 7-10 days or sooner if needed Patient Language: Belarusian Prescriptions: New azithromycin 250 mg tablet See Rx Instructions .ROUTE .COMPLEX Qty: 6 0RF Rx Instructions: For 250 mg dose pack: take 500 mg today (day 1), then 250 mg for 4 days (days 2-5) methylprednisolone [Medrol (Sam)] 4 mg tablets,dose pack See Rx Instructions .ROUTE .COMPLEX Qty: 21 0RF Rx Instructions: orally per package directions No Action sertraline 100 mg tablet hydroxyzine HCl 50 mg tablet ergocalciferol (vitamin D2) 1,250 mcg (50,000 unit) capsule bupropion HCl 150 mg tablet extended release 24 hr PO Follow-up/Referrals: Corby,MYRIAM Daugherty [Primary Care Provider] - Stand Alone Forms: Work/School Release IP Time of Disposition: 10:21 Quality [place] Coma Scale Eyes: Open Verbal: Oriented and Alert Motor: Follows Commands Maxx Coma Total Score: 15
[2024-07-06 10:17] LABS: EDSTREPNEGPOS1 Negative (Negative)
== END 2024-07-06 10:25 | disposition home or self-care (01) ==
PROVIDERS: Emergency Provider Registered Nurse; PCP Registered Nurse
DX: J02.9 Acute pharyngitis, unspecified (principal); R05.1 Acute cough; F17.210 Nicotine dependence, cigarettes, uncomplicated
CPT/HCPCS: 87081; 87880; 99213; G0463